=== PATIENT | female | born 2000 | race Caucasian/White ===

== ENCOUNTER 2022-08-07 03:08 | Emergency (ER) | payer OTHER, BC ==
[2022-08-07] MEDS ORDERED: Acetaminophen 500 MG TAB ONE (03:28)
== END 2022-08-07 04:50 | disposition home or self-care (01) ==
LOC: ERS 03:08
DX: S39.012A Strain of muscle, fascia and tendon of lower back, initial encounter (principal); V48.0XXA Car driver injured in noncollision transport accident in nontraffic accident, initial encounter
CPT/HCPCS: 72100; 72125